=== PATIENT | female | born 1955 | race Caucasian/White ===

== ENCOUNTER 2021-07-19 08:43 | Inpatient (IN) | payer MEDICARE, MEDICAID, SELFPAY ==
[2021-07-19] VITALS (33 sets, daily range): BP systolic 100–157; BP diastolic 57–96; PULSE 62–111; RESP 18–32; TEMP 37.1–38.9; O2SAT 77–93; BMI 38.0
--- NOTE | 2021-07-19 09:09 | XR_ITS ---
WS: [id number] Exam: XR chest 1V portable [id number] Date/Time of Exam: 07/19/2021 9:17 AM Reason For Exam: dyspnea/cough No priors. There are infiltrates in the mid and lower lung zones bilaterally suggesting pneumonia. The lungs are fully inflated. Heart size is within normal limits for technique. No pleural effusions. The mediasti num and osseous thorax are unremarkable. Monitoring leads superimpose the chest. XR/XR chest 1V portable [id number] IMPRESSION: 1. Infiltrates in the mid and lower lung zones bilaterally suggesting pneumonia .
[2021-07-19] MEDS: ondansetron 2 mg/ML SDV 2 mL 4 MG IVP (09:27)
[2021-07-19] MEDS: lactated ringers 1,000 ML 999 ML IV (09:27)
[2021-07-19 09:46] LABS: Basophils % 0.2 %; Hematocrit 45.3 % (37.0-47.0); Hemoglobin 14.6 g/dL (11.5-15.3); Lymphocytes # 0.6 10^3/uL (0.8-4.8); Lymphocytes % 4.9 %; Mean Corpuscular HGB Conc 32.2 g/dL (30.0-36.0); Mean Corpuscular Hemoglobin 34.5 pg (28.0-34.0); Mean Corpuscular Volume 107.1 fl (81-99); Mean Platelet Volume 8.6 fL (7.4-10.4); Monocytes # 0.6 10^3/uL (0.2-0.9); Monocytes % 4.9 %; Neutrophils # 10.76 10^3/uL (1.8-7.7); Neutrophils % 88.6 %; Nucleated Red Blood Cells % 0.2 %; Platelet Count 154 10^3/cmm (130-400); Red Blood Count 4.23 10^6/uL (4.1-5.3); White Blood Count 12.2 10^3/uL (4.0-10.0)
[2021-07-19 09:52] LABS: ABG PCO2 58.6 mmHg (35-45); ABG PH Result 7.34 (7.35-7.45); Arterial Blood Gas Hematocrit 44.8 % (37-47); Base Excess ABG 4.2 mmol/L (-2.0-2.0); Blood Gas Allen Test Pos; Blood Gas Operator Identificat CAK; Blood Gas Sample Site Radial, left; Blood Gas Sample Type Arterial; Carboxyhemoglobin 4.6 %THgb (0.4-20.1); HCO3 ABG 31.7 mmol/L (22-26); HGB O2 Sat 86.8 % (95-100); Ionized Calcium Level - ABG 1.2 mmol/L (1.1-1.4); Oxygen Device NC; PO2 ABG 64.4 mmHg (80.0-100.0); Total Hemoglobin 14.6 g/dL (12-16)
--- NOTE | 2021-07-19 10:03 | ED_ITS ---
HPI - SOB/Dyspnea General: Chief Complaint: Shortness of Breath/Dyspnea Stated Complaint: respiratory distress Time Seen by Provider: 07/19/21 09:08 Source: patient Mode of arrival: wheelchair History of Present Illness: HPI Narrative: 66-year-old female who presents to the emergency room with complaints of shortness of breath. Recently moved here to be with family for [place]. He is supposed to be on oxygen at 3 L/min continuously but evidently when she moved here did not have any oxygen whether she has been using another family members oxygen source with they have it at 4 L/min. Relative at the bedside with there is a distant relative reports that the patient has been confused and disoriented frequently will begin to answer questions and seems to be cognizant and oriented but then tails off which I find to be the case as well at the bedside. Patient denies any chest or abdominal pain is obviously short of breath is coarse breath sounds and significantly congested. She denies dysuria urgency or frequency vomiting or diarrhea there is no report of fever at home however they do not have a thermometer that did not think the patient felt hot while at home here she presents with a temp of 1021. Associated symptoms: Deny abdominal pain, chest pain, fever(s), nausea, orthopnea or vomiting Review of Systems Const: Denies: fever(s), chills, body aches, change in appetite, fatigue or malaise ENMT: Denies: throat pain, ear or mastoid pain, nasal discharge or nasal congestion Card: Denies: chest pain, edema, dyspnea on exertion or orthopnea Resp: Reports: dyspnea and non-productive cough; Denies: productive cough GI: Denies: abdominal pain, nausea, vomiting, hematemesis, coffee ground emesis, diarrhea, constipation, bloating, hematochezia or melena : Denies: flank pain, difficulty voiding, dysuria, urinary frequency or urinary urgency PFSH ED PFSH: Medical History Atrial fibrillation Chronic back pain COPD (chronic obstructive pulmonary disease) Chronically on 3 L of oxygen Coronary artery disease Depression with anxiety GERD (gastroesophageal reflux disease) Hyperlipidemia Hypertension Hypothyroidism Peripheral neuropathy Psychiatric care Type 2 diabetes mellitus Family History Other CAD (coronary artery disease) Diabetes Social History Smoking and tobacco status: current every day smoker Alcohol intake: current Physical Exam Const: COMMON NORMALS: no acute distress GENERAL APPEARANCE: cooperative and comfortable ORIENTATION/CONSCIOUSNESS: Yes awake, Yes oriented to person, Yes oriented to place and Yes oriented to time HENMT: COMMON NORMALS: normocephalic, atraumatic and hearing grossly normal bilaterally HEAD & SCALP: normocephalic and atraumatic Resp: EFFORT & INSPECTION: Yes labored and Yes uses accessory muscles AUSCULTATION: rhonchi Cardio: COMMON NORMALS: regular rhythm and No murmurs present (Cardio) RATE: tachycardic RHYTHM: regular rhythm GI: COMMON NORMALS: Soft to palpation and No hepatosplenomegaly present AUSCULTATION: Yes normoactive bowel sounds PALPATION: Yes Soft to palpation, No Tenderness to palpation present (GI), No Guarding due to palpation present (GI) and Yes No hepatosplenomegaly present Extremity: COMMON NORMALS: normal to inspection, capillary refill normal, no clubbing, cyanosis or edema, no calf tenderness and no pedal edema Neuro: SENSORIUM/ORIENTATION: Yes oriented to person, Yes oriented to place and Yes oriented to time Skin: COMMON NORMALS: no rashes or lesions noted GENERAL SKIN EXAM: no rashes or lesions noted Course Vital Signs: Vital signs: Vital Signs Temperature 102.1 F H 07/19/21 08:50 Pulse Rate 89 07/19/21 14:00 Respiratory Rate 29 H 07/19/21 14:00 Blood Pressure 125/67 07/19/21 14:00 Pulse Oximetry 91 07/19/21 14:00 MDM - SOB/Dyspnea Medical Decision Making Bilateral pneumonia and. Mild heart failure as well.. Secondary incidental finding of UTI. Discussed with hospitalist will admit. Medical Records I reviewed the patient's medical records. Lab Data I reviewed the patient's lab results. : 07/19/21 09:30 07/19/21 09:30 Labs/Radiology: Radiology Impressions Chest X-Ray 07/19/21 09:09 IMPRESSION: 1. Infiltrates in the mid and lower lung zones bilaterally suggesting pneumonia. Ankle X-Ray 07/19/21 11:43 IMPRESSION: Negative right ankle. Foot X-Ray 07/19/21 11:43 IMPRESSION: Negative right foot. Laboratory Results WBC 12.2 10^3/uL (4.0-10.0) H 07/19/21 09:30 RBC 4.23 10^6/uL (4.1-5.3) 07/19/21 09:30 Hgb 14.6 g/dL (11.5-15.3) 07/19/21 09:30 Hct 45.3 % (37.0-47.0) 07/19/21 09:30 MCV 107.1 fl (81-99) H 07/19/21 09:30 MCH 34.5 pg (28.0-34.0) H 07/19/21 09:30 MCHC 32.2 g/dL (30.0-36.0) 07/19/21 09:30 RDW 14.0 % (12.1-15.1) 07/19/21 09:30 Plt Count 154 10^3/cmm (130-400) 07/19/21 09:30 MPV 8.6 fL (7.4-10.4) 07/19/21 09:30 Neut % (Auto) 88.6 % 07/19/21 09:30 Lymph % (Auto) 4.9 % 07/19/21 09:30 [place] % (Auto) 4.9 % 07/19/21 09:30 Eos % (Auto) 0.0 % 07/19/21:30 Baso % (Auto) 0.2 % 07/19/21 09:30 Neut # (Auto) 10.76 10^3/uL (1.8-7.7) H 07/19/21 09:30 Lymph # (Auto) 0.6 10^3/uL (0.8-4.8) L 07/19/21 09:30 [place] # (Auto) 0.6 10^3/uL (0.2-0.9) 07/19/21 09:30 Eos # (Auto) 0.0 10^3/uL (0.0-0.8) 07/19/21 09:30 Baso # (Auto) 0.0 10^3/uL (0.0-0.1) 07/19/21 09:30 Nucleated RBC % (auto) 0.2 % 07/19/21 09:30 Nucleated RBCs # 0.0 /100WBC 07/19/21 09:30 Specimen Type Arterial 07/19/21 09:41 Sample Site Radial, left 07/19/21 09:41 ABG pH 7.34 (7.35-7.45) L 07/19/21 09:41 ABG pCO2 58.6 mmHg (35-45) H 07/19/21 09:41 ABG pO2 64.4 mmHg (80.0-100.0) L 07/19/21 09:41 ABG HCO3 31.7 mmol/L (22-26) H 07/19/21 09:41 ABG O2 Saturation 92.0 07/19/21 09:41 ABG Base Excess 4.2 mmol/L (-2.0-2.0) H 07/19/21 09:41 Noe Test Pos 07/19/21 09:41 A-a O2 Gradient 2.0 mmHg (5-10) L 07/19/21 09:41 Hematocrit 44.8 % (37-47) 07/19/21 09:41 Hgb O2 Saturation 86.8 % (95-100) L 07/19/21 09:41 Carboxyhemoglobin 4.6 %THgb (0.4-20.1) 07/19/21 09:41 Methemoglobin 1.0 % (0.4-1.5) 07/19/21 09:41 Total Hemoglobin 14.6 g/dL (12-16) 07/19/21 09:41 Sodium 140.0 mmol/L (131-143) 07/19/21 09:41 Potassium 4.0 mmol/L (3.5-5.0) 07/19/21 09:41 Glucose 159.0 mg/dL (70-115) H 07/19/21 09:41 Ionized Calcium 1.2 mmol/L (1.1-1.4) 07/19/21 09:41 O2 Delivery Device Nc 07/19/21 09:41 O2 Liters/Min 5.0 % 07/19/21 09:41 Dude [place]rangler ID Cak 07/19/21 09:41 Sodium 140 mmol/L (136-145) 07/19/21 09:30 Potassium 4.0 mmol/L (3.5-5.1) 07/19/21 09:30 Chloride 98 mmol/L (98-107) 07/19/21 09:30 Carbon Dioxide 30 mmol/L (22-29) H 07/19/21 09:30 Anion Gap 16.0 (5-19) 07/19/21 09:30 BUN 14 mg/dL (8-23) 07/19/21 09:30 Creatinine 1.2 mg/dL (0.5-0.9) H 07/19/21:30 GFR Calculation 44.9 mL/min (90-130) L 07/19/21 09:30 Glucose 162 mg/dL (65-115) H 07/19/21 09:30 Calculated Osmolality 294 mOsm/kg (285-295) 07/19/21 09:30 Lactic Acid 2.0 mmol/L (0.5-2.2) 07/19/21 09:30 Calcium 8.7 mg/dL (8.5-10.5) 07/19/21:30 Magnesium 1.7 mg/dL (1.7-2.3) 07/19/21 09:30 Total Bilirubin 0.3 mg/dL (0.15-1.2) 07/19/21 09:30 AST 11 U/L (0-32) 07/19/21 09:30 ALT 11 U/L (0-33) 07/19/21 09:30 Alkaline Phosphatase 138 IU/L (35-105) H 07/19/21 09:30 Creatine Kinase 51 U/L (26-192) 07/19/21 09:30 NT-Pro-B Natriuret Pep 297 pg/mL (0-125) H 07/19/21 09:30 Total Protein 7.0 g/dL (6.6-8.7) 07/19/21 09:30 Albumin 4.1 g/dL (3.5-5.2) 07/19/21 09:30 Globulin 2.9 g/dL (1.3-4.6) 07/19/21 09:30 Lipase 12 U/L (13-60) L 07/19/21 09:30 Urine Color Yellow (Yellow) 07/19/21 10:00 Urine Appearance Cloudy (CLEAR) 07/19/21 10:00 Urine pH 5 (5-7) 07/19/21 10:00 Ur Specific [place] 1.015 (1.005-1.030) 07/19/21 10:00 Urine Protein Neg (Negative) 07/19/21 10:00 Urine Glucose (UA) Norm (Normal) 07/19/21 10:00 Urine Ketones Negative (Negative) 07/19/21 10:00 Urine Blood 2+ (Negative) H 07/19/21 10:00 Urine Nitrate Positive (Negative) H 07/19/21 10:00 Urine Bilirubin Neg (Negative) 07/19/21 10:00 Urine Urobilinogen 1 mg/dL (Negative) H 07/19/21 10:00 Ur Leukocyte Esterase 2+ (Negative) H 07/19/21 10:00 Urine RBC 15-25 /hpf (0-2) H 07/19/21 10:00 Urine WBC >100 /hpf (0-5) H 07/19/21 10:00 Ur Squamous Epith Cells 0-4 /hpf (0-5) H 07/19/21 10:00 Amorphous Sediment Not Reportable 07/19/21 10:00 Urine Bacteria 4+ /hpf (NONE) H 07/19/21 10:00 Serum Ketones Negative (Negative) 07/19/21 09:30 Discharge Plan Discharge Patient Disposition: Admitted As Inpatient Admit Provider: López Montenegro Clinical Impression: Respiratory failure with hypoxia and hypercapnia, Type 2 diabetes mellitus, Pneumonia, UTI (urinary tract infection), COPD exacerbation Condition: Stable Coding Level of Care Code ED Audiology Director for Kris Berry
[2021-07-19 10:08] LABS: Ketone (Acetest) Serum Negative (Negative)
[2021-07-19 10:12] LABS: Alanine Aminotransferase 11 U/L (0-33); Albumin Level 4.1 g/dL (3.5-5.2); Alkaline Phosphatase 138 IU/L (35-105); Aspartate Amino Transferase 11 U/L (0-32); Blood Urea Nitrogen 14 mg/dL (8-23); Calcium 8.7 mg/dL (8.5-10.5); Carbon Dioxide 30 mmol/L (22-29); Chloride 98 mmol/L (98-107); Creatine Phosphokinase 51 U/L (26-192); Globulin 2.9 g/dL (1.3-4.6); Glomerular Filtration Rate 44.9 mL/min (90-130); Glucose 162 mg/dL (65-115); Lipase 12 U/L (13-60); Magnesium 1.7 mg/dL (1.7-2.3); NT Pro B Type Natriuretic Pept 297 pg/mL (0-125); Osmolality Calculated 294 mOsm/kg (285-295); Sodium 140 mmol/L (136-145); Total Bilirubin 0.3 mg/dL (0.15-1.2)
[2021-07-19 10:38] LABS: Add Urine Culture? Yes; Add Urine Microscopic? YES; Bacteria Urine 4+ /hpf; Bilirubin Urine Neg (Negative); Blood Urine 2+ (Negative); Glucose Urine UA Norm (Normal); Ketones Urine Negative (Negative); Leukocyte Esterase Urine 2+ (Negative); Nitrate Urine Positive (Negative); Protein Urine Neg (Negative); RBC Urine 15-25 /hpf (0-2); Specific Gravity, Urine 1.015 (1.005-1.030); Squamous Epithelial Cell Urine 0-4 /hpf (0-5); Urine Appearance Cloudy (CLEAR); Urine Color Yellow (Yellow); Urobilinogen Urine 1 mg/dL (Negative); WBC Urine >100 /hpf (0-5); pH Urine 5 (5-7)
[2021-07-19] MEDS: levofloxacin-dextrose 5 % 750 MG/150 ML PREMIX 100 MG IV (10:58)
--- NOTE | 2021-07-19 11:43 | XR_ITS ---
WS: [id number] Exam: XR ankle RT 2V [id number] Date/Time of Exam: 07/19/2021 11:45 AM Reason For Exam: fall Findings: Multiple views of the ankle reveal no fracture or displacements of bone. No soft tissue swelling is present. There are no periosteal reactions noted. The talus and calcaneus are in adequate position. The joint space is smooth and equidistant. XR/XR ankle RT 2V [id number] IMPRESSION: Negative right ankle.
--- NOTE | 2021-07-19 11:43 | XR_ITS ---
WS: [id number] Exam: XR foot RT 2V [id number] Date/Time of Exam: 07/19/2021 11:45 AM Reason For Exam: fall Findings: The foot was examined in multiple views and reveals no fractures or displacements of bone. No bony a nomalies are noted. The bony elements are in adequate alignment. The joint spaces are smooth and eq uidistant. XR/XR foot RT 2V [id number] IMPRESSION: Negative right foot.
--- NOTE | 2021-07-19 11:54 | P.HP_ITS ---
Providers/Chief Complaint Admitting Physician: López Montenegro MD Chief Complaint: respiratory distress History of Present Illness Huong Hickman is a 66 year old female recently new to the area that presents with 3 days of cough, shortness of breath, and some dysuria. She has not had any vomiting, or diarrhea that I can decipher. She has been somewhat confused, and a little lethargic when not stimulated in the emergency department. She has not fallen at home but did have a fall in the emergency department that was witnessed by family where she injured her right ankle by twisting it. She does report some pain in the ankle currently. She reports she is short of breath, coughing and wheezing. She denies any chest pain. I cannot decipher her responses to some of the questions, and family that is with her does not know al l of her past medical history. I am not sure if she has been vaccinated for COVID or flu. She has not been on antibiotics lately. She states she is supposed to be on oxygen, but using a friend's oxygen about 3 to 4 L at home. She has had a rash in her neck area. Review of Systems General: Reports: 10 or more systems reviewed and unremarkable except in HPI and below Const: Reports: fever(s) and fatigue Eyes: Denies: change in vision ENMT: Denies: throat pain Card: Reports: dyspnea on exertion; Denies: chest pain Resp: Reports: dyspnea and productive cough GI: Denies: abdominal pain, hematemesis, coffee ground emesis, hematochezia or melena : Reports: dysuria Musc: Reports: back pain; Denies: neck pain Skin/Breast: Reports: rash Neuro: Denies: headache(s) Psych: Denies: anxiety or depression Endo: Denies: polyuria Lan/Lymph: Denies: easy bruising All/Imm: Denies: urticaria Medications/Allergies Home Medications Medication Instructions Recorded Confirmed Last Taken Type Fish Oil 1 cap PO DAILY 07/19/21 07/19/21 Unknown History albuterol sulfate 90 mcg/actuation 2 - 4 puff INHALATION Q4H PRN 07/19/21 Unknown History aerosol inhaler apixaban 2.5 mg tablet (Eliquis) 2.5 mg PO BID 07/19/21 07/19/21 07/19/21 History aspirin 81 mg tablet,delayed 81 mg PO QAM 07/19/21 07/19/21 Unknown History release atorvastatin 40 mg tablet (Lipitor) 40 mg PO DAILY 07/19/21 07/19/21 Unknown History buspirone 15 mg tablet 15 mg PO TID 07/19/21 07/19/21 07/19/21 History citalopram 40 mg tablet (Celexa) 40 mg PO DAILY 07/19/21 07/19/21 Unknown History cyclobenzaprine 5 mg tablet 5 mg PO TID 07/19/21 07/19/21 07/19/21 History ferrous sulfate 325 mg (65 mg 325 mg PO BID 07/19/21 07/19/21 Unknown History iron) tablet (iron) fluticasone fur. 100 mcg-umeclid 1 inh INHALATION DAILY 07/19/21 07/19/21 Unknown History 62.5 mcg-vilant 25 mcg inhalat.powder (Trelegy Ellipta) furosemide 20 mg tablet (Lasix) 20 mg PO QAM 07/19/21 07/19/21 Unknown History gabapentin 300 mg capsule 300 mg PO TID 07/19/21 07/19/21 Unknown History ipratropium 0.5 mg-albuterol 3 mg 3 ml INHALATION QID PRN 07/19/21 07/19/21 Unknown History (2.5 mg base)/3 mL nebulization soln levothyroxine 112 mcg tablet 112 mcg PO QAM 07/19/21 07/19/21 07/19/21 History lisinopril 20 mg tablet 20 mg PO DAILY 07/19/21 07/19/21 Unknown History metformin 500 mg tablet 500 mg PO DAILY 07/19/21 07/19/21 Unknown History omeprazole 20 mg capsule,delayed 20 mg PO DAILY 07/19/21 07/19/21 Unknown History release oxybutynin chloride 10 mg 10 mg PO DAILY 07/19/21 07/19/21 Unknown History tablet,extended release 24 hr quetiapine 300 mg tablet (Seroquel) 600 mg PO BEDTIME 07/19/21 07/19/21 Unknown History trazodone 100 mg tablet 100 mg PO BEDTIME 07/19/21 07/19/21 Unknown History Allergies Allergy/AdvReac Type Severity Reaction Status Date / Time No Known Allergies Allergy Verified 07/19/21 09:46 PFSH Acute PFSH: Medical History (Updated 07/19/21 @ 13:00 by López Montenegro MD) Atrial fibrillation Chronic back pain COPD (chronic obstructive pulmonary disease) Chronically on 3 L of oxygen Coronary artery disease Depression with anxiety GERD (gastroesophageal reflux disease) Hyperlipidemia Hypertension Hypothyroidism Peripheral neuropathy Psychiatric care Type 2 diabetes mellitus Family History (Updated 07/19/21 @ 11:58 by López Montenegro MD) Other CAD (coronary artery disease) Diabetes Social History (Updated 07/19/21 @ 11:58 by López Montenegro MD) Smoking and tobacco status: current every day smoker Alcohol intake: current Other PFSH information: Supplemental PFSH Information: Denies any significant surgeries Vitals/I&O/Wt Last Vital Signs Temp 102.1 F H 07/19/21 08:50 Pulse 102 H 07/19/21 10:46 Resp 32 H 07/19/21 10:46 BP 131/73 07/19/21 10:46 Pulse Ox 93 07/19/21 10:46 Weight last 48 hrs Weight 100.698 kg Physical Exam Narrative: General exam is a white female, conversant but somewhat difficult to understand, who can answer Questions. When not stimulated, she quickly goes back to sleep. Mild to moderate respiratory distress noted with elevated respiratory rate, retractions HEENT: Pupils equally round. Oropharynx clear. A dentulous. Neck is supple no lymphadenopathy or thyromegaly Cardiovascular regular rate and rhythm, heart sounds distant Lungs bilateral expiratory wheezes. Rhonchi at the bases Abdomen is soft, obese, positive bowel sounds. No obvious organomegaly. exam demonstrates Klein Extremities no cyanosis clubbing or edema, cap refill brisk Skin some faint erythema in her neckline but no significant papules/macules Neuro no obvious focal deficits. Falls asleep quickly when not stimulated. Data : 07/19/21 09:30 07/19/21 09:30 Other Labs: I have ordered an EKG MCV is elevated at 107 ABG demonstrates a pH of 7.34, PCO2 of 59, PO2 of 64 LFTs are normal with the exception of alk phos of 138. CK 51 BNP 297 Lipase 12 Urinalysis demonstrates 15-25 red blood cells, greater than 100 white blood cells Coronavirus, flu pending Serum ketones negative Chest x-ray bibasilar infiltrate right greater than left. Cannot exclude small left effusion. Calcium noted in the aorta. X-rays of the right foot and ankle are negative. A&P Assessment and plan (1) Respiratory failure with hypoxia and hypercapnia: Acute respiratory failure with hypoxia and hypercapnia demonstrated by ABG. She has accessory muscle use, and evidence this is likely affecting her brain secondary to her acute encephalopathy. I believe the likely etiology of this is pneumonia, acute COPD exacerbation. She may need BiPAP.. Will keep this in mind and transition over the ICU. Status: Acute (2) Pneumonia: Patient presenting with acute pneumonia. She has risk factors for pseudomonal disease secondary to her longstanding COPD, oxygen requirement, heart disease and other comorbidities. At this point she will be on Zosyn, Levaquin Sputum culture MRSA PCR Oxygen, wean as tolerated Pulmonary toilet Status: Acute (3) UTI (urinary tract infection): Urine culture Zosyn IV Status: Acute (4) Acute metabolic encephalopathy: Secondary to COPD exacerbation, pneumonia, elevated CO2. Monitor carefully for improvement, and if this is not seen considering imaging. Status: Acute (5) COPD exacerbation: Acute COPD exacerbation Duoneb every 4 hours, Budesonide BID Wean oxygen as tolerated May require BIPAP secondary to CO2 retention. IV steroids Status: Acute (6) Elevated MCV: Check TSH, B12, Folate Status: Acute (7) Type 2 diabetes mellitus: Sliding scale insulin Status: Acute (8) Hypothyroidism: Check TSH Status: Acute (9) Coronary artery disease: Continue ASA, Statin. Check baseline EKG Status: Acute Plan Right ankle pain post fall. Xray negative. Continue to monitor. Multiple other medical problems as outlined by past medical history Full code [place] will suffice for DVT prophylaxis Attestations Medical Necessity Statement*: Will need greater than 2 midnight stay secondary to acute pneumonia, UTI, respiratory failure, and acute encephalopathy requiring treatment with IV antibiotics and close monitoring Critical Care Time: The high probability of a clinically significant, sudden or life threatening deterioration of the patient's [pulmonary, MARKETING PRODUCTION SPECIALIST, infectious system(s) required my full and direct attention, intervention and personal management. The critical care time is as shown. This time is in addition to time spent performing any reported procedures but includes the following: [x] Data and vital sign review and interpretation [x] Patient assessment, examination and intervention [x] Documentation [x] Medication orders and management Critical Care Time (min): 65 Coding Level of Care Code Acute Laboratory Equipment Cleaner for Chg Fwd Diagnoses Respiratory failure with hypoxia and hypercapnia J96.91; J96.92 Pneumonia J18.9 UTI (urinary tract infection) N39.0 Acute metabolic encephalopathy G93.41 Elevated MCV R71.8 Type 2 diabetes mellitus E11.9 Hypothyroidism E03.9 Coronary artery disease I25.10 COPD exacerbation J44.1
--- NOTE | 2021-07-19 11:59 | ECG_ITS ---
[facility] Test Date: 2021-07-19 Pat Name: Huong Hickman Department: Room: Gender: Female Insurance Broker: : 1955 Requested By: López Leblanc Order Number: [id number] Julia MD: Saira Jimenez M.D. Measurements Intervals [place] Rate: 99 P: 80 MI: 145 QRS: 67 QRSD: 88 T: 61 QT: 351 QTc: 451 Interpretive Statements SINUS RHYTHM LOW QRS VOLTAGE IN PRECORDIAL LEADS [QRS DEFLECTION < 1.0 mV IN CHEST LEADS] No previous ECG available for comparison Electronically Signed On 07-20-2021 7:34:27 CDT by Saira Jimenez M.D. [email or web address]
--- NOTE | 2021-07-19 12:22 | PC.NURSE ---
REPORT GIVEN TO MYLES GREGORY IN ICU.
[2021-07-19 13:32] LABS: Vitamin B12 382 pg/mL (232-1245)
[2021-07-19 13:37] LABS: Thyroid Stimulating Hormone 2.16 uIU/mL (0.27-4.20)
[2021-07-19 13:45] LABS: Folate Level 11.2 ng/mL (4.8-37.3)
[2021-07-19] MEDS: BuSPIRONE 10 mg Tablet 15 MG PO ×2 (14:30→20:30)
[2021-07-19] MEDS: ipratropium-albuterol 3 mL Neb INHALATION ×3 (15:00→23:40)
[2021-07-19 15:31] LABS: Adenovirus Not Detected (NOT DETECT); Chlamydia Pneumoniae Not Detected (NOT DETECT); Coronavirus 229E,HKU1,NL63,OC4 Detected (NOT DETECT); Human Metapneumovirus Not Detected (NOT DETECT); Human Rhinovirus/Enterovirus Not Detected (NOT DETECT); Influenza A Not Detected (NOT DETECT); Influenza A H1 Not Detected (NOT DETECT); Influenza A H1-2009 Not Detected (NOT DETECT); Influenza A H3 Not Detected (NOT DETECT); Influenza B Not Detected (NOT DETECT); Mycoplasma Pneumoniae Not Detected (NOT DETECT); Parainfluenza Virus Type 1 Not Detected (NOT DETECT); Parainfluenza Virus Type 2 Not Detected (NOT DETECT); Parainfluenza Virus Type 3 Not Detected (NOT DETECT); Parainfluenza Virus Type 4 Not Detected (NOT DETECT); Respiratory Syncytial Virus A Not Detected (NOT DETECT); Respiratory Syncytial Virus B Not Detected (NOT DETECT); SARS-COV-2 Not Detected (NOT DETECT)
[2021-07-19] MEDS: piperacillin-tazobactam 3.375 GM in dextrose 5% (plus) 50 ML IV ×2 (15:31→23:33)
[2021-07-19 17:16] LABS: Glucose Point of Care 209 mg/dL (70-110)
[2021-07-19] MEDS: apixaban 5 mg Tablet 2.5 MG PO (17:18)
[2021-07-19] MEDS: insulin lispro 100 unit/1 mL SUBCUT ×2 (17:18→20:38)
[2021-07-19] MEDS: budesonide 0.5 mg/2 mL Neb INHALATION (20:03)
[2021-07-19 20:35] LABS: Glucose Point of Care 199 mg/dL (70-110)
[2021-07-20] VITALS (60 sets, daily range): BP systolic 83–139; BP diastolic 52–81; PULSE 64–91; RESP 13–32; TEMP 36.8–37; O2SAT 83–95; BMI 37.8
[2021-07-20] MEDS: ipratropium-albuterol 3 mL Neb INHALATION ×5 (03:26→20:08)
[2021-07-20 03:29] LABS: Basophils % 0.3 %; Hematocrit 42.8 % (37.0-47.0); Hemoglobin 13.8 g/dL (11.5-15.3); Lymphocytes # 1.2 10^3/uL (0.8-4.8); Lymphocytes % 7.2 %; Mean Corpuscular HGB Conc 32.2 g/dL (30.0-36.0); Mean Corpuscular Hemoglobin 33.9 pg (28.0-34.0); Mean Corpuscular Volume 105.2 fl (81-99); Monocytes # 0.3 10^3/uL (0.2-0.9); Monocytes % 1.8 %; Neutrophils # 14.26 10^3/uL (1.8-7.7); Neutrophils % 89.8 %; Nucleated Red Blood Cells % 0 %; Platelet Count 174 10^3/cmm (130-400); Red Blood Count 4.07 10^6/uL (4.1-5.3); Red Cell Distribution Width 13.7 % (12.1-15.1); White Blood Count 15.9 10^3/uL (4.0-10.0)
[2021-07-20 03:44] LABS: Alanine Aminotransferase 11 U/L (0-33); Albumin Level 3.5 g/dL (3.5-5.2); Alkaline Phosphatase 119 IU/L (35-105); Anion Gap 12.9 (5-19); Aspartate Amino Transferase 11 U/L (0-32); Blood Urea Nitrogen 18 mg/dL (8-23); Calcium 9.5 mg/dL (8.5-10.5); Carbon Dioxide 30 mmol/L (22-29); Chloride 100 mmol/L (98-107); Globulin 3.3 g/dL (1.3-4.6); Glomerular Filtration Rate 49.7 mL/min (90-130); Glucose 212 mg/dL (65-115); Osmolality Calculated 296 mOsm/kg (285-295); Potassium 3.9 mmol/L (3.5-5.1); Sodium 139 mmol/L (136-145); Total Bilirubin 0.3 mg/dL (0.15-1.2); Total Protein 6.8 g/dL (6.6-8.7)
[2021-07-20] MEDS: aspirin 81 mg EC Tablet PO (05:26)
[2021-07-20] MEDS: acetaminophen 325 mg Tablet 650 MG PO (05:26)
[2021-07-20] MEDS: levothyroxine 112 mcg Tablet PO (05:26)
[2021-07-20] MEDS: insulin lispro 100 unit/1 mL SUBCUT ×4 (07:14→21:53)
[2021-07-20 07:25] LABS: Glucose Point of Care 182 mg/dL (70-110)
--- NOTE | 2021-07-20 07:46 | USCV_ITS ---
Huong Hickman Age: 66 Gender: F : 1955 Exam Date: 07/20/2021 08:11 Ordering Phys: López Montenegro MD Technologist: TAMMIE Exam Location: [facility] [place] Indication: H/O HF BP: / HR: 69 Rhythm: Sinus Technical Quality: Adequate MEASUREMENTS (Male / Female) Normal Values 2D ECHO LV Diastolic Diameter PLAX 5.0 cm 4.2 - 5.9 / 3.9 - 5.3 cm LV Systolic Diameter PLAX 2.9 cm IVS Diastolic Thickness 1.4 cm 0.6 - 1.0 / 0.6 - 0.9 cm IVS Systolic Thickness 1.7 cm LVPW Diastolic Thickness 1.0 cm 0.6 - 1.0 / 0.6 - 0.9 cm LVPW Systolic Thickness 1.6 cm LVOT Diameter 2.0 cm LV Ejection Fraction 2D Teich 72.3 % LV Ejection Fraction MOD 2C 37.1 % LV Ejection Fraction 2C AL 37.2 % LA Diameter 3.7 cm LA Width 3.5 cm LA Height 4.3 cm RA Width 4.2 cm RA Height 4.9 cm Aorta at Sinotubular Diameter 2.4 cm M-MODE Aortic Annulus Diameter 2.6 cm LA Ao Ratio MM 1.2 MV E Point Septal Separation 0.5 cm DOPPLER AV Peak Velocity 172.8 cm/s LVOT Peak Velocity 75.0 cm/s AV Area Cont Eq vti 1.5 cm squared AV Area Cont Eq pk 1.4 cm squared MV Peak Velocity 113.0 cm/s MV Area PHT 2.7 cm squared Mitral E to A Ratio 0.9 MV E' Velocity 50.0 cm/s Mitral E to MV E' Ratio 13.5 Mitral E to LV E' Lateral Ratio 11.8 Mitral E to LV E' Septal Ratio 16.2 TV Peak E Velocity 68.0 cm/s Right Atrial Pressure 3.0 mmHg PV Peak Velocity 94.0 cm/s RV Acceleration Time 0.1 s RV Ejection Time 0.3 s RV AcT/ET 0.4 FINDINGS Left Ventricle Normal left ventricular size. LV systolic function is normal with EF of 50-55%. No regional wall motion abnormalities. Grade 1 diastolic dysfunction Right Ventricle The right ventricle is normal in size and function. Right Atrium The right atrium is normal in size. Left Atrium The left atrium is normal in size. Mitral Valve Mild mitral annular calcification without significant stenosis or prolapse. There is mild mitral regurgitation. Aortic Valve Structurally normal aortic valve without significant sclerosis or stenosis. There is mild to moderate aortic regurgitation. Tricuspid Valve Structurally normal tricuspid valve without significant stenosis or regurgitation. Insufficient TR jet to calculate RVSP Pulmonic Valve Not well visualized Pericardium Normal pericardium without effusion. Aorta Normal ascending aorta dimension. CONCLUSIONS Technically limited quality echocardiogram because of poor ultrasonic windows LV systolic function is normal with EF of 50-55% Grade 1 diastolic dysfunction Mild mitral regurgitation Mild to moderate aortic regurgitation No comparison studies are available Patric Vidales MD (Electronically Signed) Final Date: 20 July 2021 10:27 S
--- NOTE | 2021-07-20 07:49 | P.PN_ITS ---
Subjective Subjective: Huong reports she feels much better. She believes she is in the hospital after a fall. I explained that she has pneumonia. She denies any pain. She admits she was short of breath. Nursing relates that she no longer appears to have any significant confusion, but often tries to get up on her own. Patient wants to leave today, and I explained this is not a good idea currently considering she is under treatment for pneumonia, and her oxygen requirements have not yet gone down. She reports she has been hospitalized for heart failure in the past. Medications: Reviewed: Yes Vitals/I&O/Wt Last Vital Signs Temp 98.2 F 07/20/21 02:50 Pulse 79 07/20/21 06:30 Resp 23 H 07/20/21 06:30 BP 139/70 07/20/21 06:30 Pulse Ox 95 07/20/21 06:30 07/19/21 07/20/21 07/20/21 22:59 06:59 14:59 Intake Total 270 / 270 290 / 560 Output Total 350 / 350 100 / 450 Balance -80 / -80 190 / 110 Weight last 48 hrs Weight 100.108 kg Weight 100.698 kg Physical Exam Narrative: General exam is a white female, conversant, alert and oriented x3 HEENT: Pupils equally round. Oropharynx clear. Neck is supple Cardiovascular regular rate and rhythm, heart sounds distant Lungs faint expiratory wheeze. Improved aeration from yesterday. Abdomen is soft nontender with positive bowel sounds Extremities no cyanosis clubbing. Slight edema right ankle, lateral side. No contusion noted. Otherwise without edema Neuro no obvious focal deficits Skin no rash currently Data : 07/20/21 02:54 07/20/21 02:54 Micro: Microbiology 07/19/21 12:18 Blood Culture - Preliminary Blood SPECIMEN COLLECTED 07/19/21 12:16 Blood Culture - Preliminary Blood SPECIMEN COLLECTED A&P Assessment and plan (1) Respiratory failure with hypoxia and hypercapnia: Acute respiratory failure with hypoxia and hypercapnia demonstrated by ABG. She has accessory muscle use, and evidence this is likely affecting her brain se condary to her acute encephalopathy. I believe the likely etiology of this is pneumonia, acute COPD exacerbation. She required some BiPAP yesterday Overall she seems improved today. She is currently on 6 L of oxygen. She has no significant accessory muscle use currently. Status: Acute (2) Pneumonia: Patient presenting with acute pneumonia. She has risk factors for pseudomonal disease secondary to her longstanding COPD, oxygen requirement, heart disease and other comorbidities. Continue Zosyn and Levaquin Await sputum culture, MRSA PCR Oxygen, wean as tolerated Pulmonary toilet Status: Acute (3) UTI (urinary tract infection): Await urine culture Continue Zosyn IV Status: Acute (4) Acute metabolic encephalopathy: Secondary to COPD exacerbation, pneumonia, elevated CO2. This appears to be significantly improved, resolved. I believe the patient is at baseline. I have attempted to call her family to have them evaluate the patient as well but there is a constant busy signal.. Status: Acute (5) COPD exacerbation: Acute COPD exacerbation Duoneb every 4 hours, Budesonide BID Wean oxygen as tolerated May require BIPAP secondary to CO2 retention. Significant improvement has occurred. Discontinue IV steroids. Changed to prednisone Status: Acute (6) Elevated MCV: TSH B12 and folate were checked and normal. Status: Acute (7) Type 2 diabetes mellitus: Continue sliding scale insulin Status: Acute (8) Hypothyroidism: TSH is normal Status: Acute (9) Coronary artery disease: Continue ASA, Statin. She indicates a significant history of heart failure in the past. Check echocardiogram Status: Acute Plan Right ankle pain post fall. Xray negative. Continue to monitor. Up with physical therapy today secondary to fall risk Multiple other medical problems as outlined by past medical history Full code Amie will suffice for DVT prophylaxis May transfer out of the ICU with sitter initially. I am concerned about her decisions to get up quickly, and ambulate without assistance. Attestations Medical Necessity Statement*: Needs continued hospitalization for IV antibiotics secondary to pneumonia. Coding Level of Care Code Acute Coil Machine Operator for Chg Fwd Diagnoses Respiratory failure with hypoxia and hypercapnia J96.91; J96.92 Pneumonia J18.9 UTI (urinary tract infection) N39.0 Acute metabolic encephalopathy G93.41 COPD exacerbation J44.1 Elevated MCV R71.8 Type 2 diabetes mellitus E11.9 Hypothyroidism E03.9 Coronary artery disease I25.10
[2021-07-20] MEDS: piperacillin-tazobactam 3.375 GM in dextrose 5% (plus) 50 ML IV ×3 (07:56→23:19)
[2021-07-20] MEDS: FUROsemide 10 mg/mL SDV 4mL 40 MG IVP (07:57)
[2021-07-20] MEDS: pantoprazole DR 40 mg Tablet PO (08:02)
[2021-07-20] MEDS: atorvastatin 40 mg Tablet PO (08:02)
[2021-07-20] MEDS: lisinopril 20 mg Tablet PO (08:02)
[2021-07-20] MEDS: apixaban 5 mg Tablet 2.5 MG PO ×2 (08:02→17:26)
[2021-07-20] MEDS: citalopram 20 mg Tablet 40 MG PO (08:02)
[2021-07-20] MEDS: BuSPIRONE 10 mg Tablet 15 MG PO ×3 (08:02→21:46)
[2021-07-20] MEDS: gabapentin 100 mg Capsule PO ×3 (08:05→21:47)
[2021-07-20] MEDS: predniSONE 20 mg Tablet 40 MG PO (08:05)
[2021-07-20] MEDS: nicotine 21 mg Patch 1 PATCH TRANSDERMA (08:06)
[2021-07-20] MEDS: budesonide 0.5 mg/2 mL Neb INHALATION ×2 (08:18→20:07)
[2021-07-20] MEDS: perflutren protein-a microsphr 0.22 mg/mL SDV 3 mL IV (08:56)
[2021-07-20] MEDS: levofloxacin-dextrose 5 % 750 MG/150 ML PREMIX 100 MG IV (09:16)
[2021-07-20 12:30] LABS: Glucose Point of Care 185 mg/dL (70-110)
--- NOTE | 2021-07-20 15:11 | PC.NURSE ---
Patient very argumentative with all staff including doctors. Insists she is strong enough to go home and wont get any better being in the hospital. Patient educated multiple times by several different staff members about the importance of continuing antibiotic treatment and being complaint with cares.
[2021-07-20 17:27] LABS: Glucose Point of Care 219 mg/dL (70-110)
--- NOTE | 2021-07-20 18:07 | PC.NURSE ---
Family visited this evening, patient more complaint and pleasant with staff after visit. Up in chair watching TV.
[2021-07-20] MEDS: quetiapine 300 mg Tablet PO (21:47)
[2021-07-20 21:54] LABS: Glucose Point of Care 276 mg/dL (70-110)
[2021-07-20] MEDS: guaiFENesin-dextromethorphan UDC 10 mL 5 ML PO (23:19)
[2021-07-20] MEDS: benzonatate 100 mg Capsule 200 MG PO (23:20)
[2021-07-21] VITALS (36 sets, daily range): BP systolic 74–116; BP diastolic 42–68; PULSE 60–90; RESP 12–30; TEMP 37; O2SAT 86–98
[2021-07-21] MEDS: ipratropium-albuterol 3 mL Neb INHALATION ×3 (02:59→11:48)
[2021-07-21 03:17] LABS: Basophils % 0.2 %; Hematocrit 43.2 % (37.0-47.0); Hemoglobin 13.6 g/dL (11.5-15.3); Lymphocytes # 1.7 10^3/uL (0.8-4.8); Lymphocytes % 10.7 %; Mean Corpuscular HGB Conc 31.5 g/dL (30.0-36.0); Mean Corpuscular Hemoglobin 33.8 pg (28.0-34.0); Mean Corpuscular Volume 107.5 fl (81-99); Mean Platelet Volume 8.8 fL (7.4-10.4); Monocytes # 0.6 10^3/uL (0.2-0.9); Monocytes % 3.7 %; Neutrophils # 13.74 10^3/uL (1.8-7.7); Neutrophils % 84.4 %; Nucleated Red Blood Cells % 0 %; Platelet Count 189 10^3/cmm (130-400); Red Blood Count 4.02 10^6/uL (4.1-5.3); Red Cell Distribution Width 13.4 % (12.1-15.1); White Blood Count 16.3 10^3/uL (4.0-10.0)
[2021-07-21 03:34] LABS: Alanine Aminotransferase 10 U/L (0-33); Albumin Level 3.3 g/dL (3.5-5.2); Alkaline Phosphatase 120 IU/L (35-105); Anion Gap 12.6 (5-19); Aspartate Amino Transferase 13 U/L (0-32); Blood Urea Nitrogen 27 mg/dL (8-23); Calcium 9.2 mg/dL (8.5-10.5); Carbon Dioxide 31 mmol/L (22-29); Chloride 98 mmol/L (98-107); Globulin 2.7 g/dL (1.3-4.6); Glomerular Filtration Rate 37.6 mL/min (90-130); Glucose 192 mg/dL (65-115); Osmolality Calculated 296 mOsm/kg (285-295); Potassium 3.6 mmol/L (3.5-5.1); Sodium 138 mmol/L (136-145); Total Bilirubin 0.3 mg/dL (0.15-1.2)
[2021-07-21] MEDS: benzonatate 100 mg Capsule 200 MG PO (05:23)
[2021-07-21] MEDS: levothyroxine 112 mcg Tablet PO (06:17)
[2021-07-21] MEDS: aspirin 81 mg EC Tablet PO (06:17)
[2021-07-21] MEDS: piperacillin-tazobactam 3.375 GM in dextrose 5% (plus) 50 ML IV (07:23)
[2021-07-21 07:48] LABS: Glucose Point of Care 155 mg/dL (70-110)
--- NOTE | 2021-07-21 08:05 | XR_ITS ---
WS: [id number] Exam: XR chest 1V portable [id number] Date/Time of Exam: 07/21/2021 8:11 AM Reason For Exam: pneumonia Comparison 07/19/2021. Improved bibasal infiltrates are noted. The lungs remain fully inflated. No ple ural effusions. Heart size is top limits normal. The mediastinum is not widened. Regional bony elemen ts are intact. Monitoring leads superimpose the chest. XR/XR chest 1V portable [id number] IMPRESSION: 1. Bibasal infiltrates showing significant improvement since previous study.
--- NOTE | 2021-07-21 08:12 | PC.NURSE ---
Dr. Montenegro rounding and discussing POC with patient. Possible discharge this afternoon if all safety measures are met.
[2021-07-21] MEDS: insulin lispro 100 unit/1 mL SUBCUT ×2 (08:19→12:55)
[2021-07-21] MEDS: apixaban 5 mg Tablet 2.5 MG PO (08:19)
[2021-07-21] MEDS: BuSPIRONE 10 mg Tablet 15 MG PO ×2 (08:20→15:10)
[2021-07-21] MEDS: pantoprazole DR 40 mg Tablet PO (08:21)
[2021-07-21] MEDS: nicotine 21 mg Patch 1 PATCH TRANSDERMA (08:21)
[2021-07-21] MEDS: atorvastatin 40 mg Tablet PO (08:21)
[2021-07-21] MEDS: citalopram 20 mg Tablet 40 MG PO (08:21)
[2021-07-21] MEDS: gabapentin 100 mg Capsule PO ×2 (08:21→15:10)
[2021-07-21] MEDS: predniSONE 20 mg Tablet 40 MG PO (08:21)
[2021-07-21] MEDS: budesonide 0.5 mg/2 mL Neb INHALATION (08:27)
[2021-07-21] MEDS: levofloxacin-dextrose 5 % 750 MG/150 ML PREMIX 100 MG IV (09:01)
--- NOTE | 2021-07-21 09:26 | PC.CHAP ---
Pastoral Care Encounter/Spiritual Assessment Type of Contact [] Declined catering coordinator visit [] Patient/Family/Request visit [] Outpatient visit [] Follow-up visit [] Physician referral [] Code/Alert x] Routine visit [] Staff referral [] Actively dying [] Patient sleeping [] Family support [] [] Out of room [] Palliative care [] [] Receiving care in room [] Pre-surgical visit [] Trauma [] Long length of stay [x] ICU visit [] Other: Relational/Emotional Strength [] Patient feels connected with others/family/visitors/staff [] Distress [] Loneliness/isolation [] Abandonment Spirituality of Patient [] Person of Meenakshi [] Attends Pentecostal of their Meenakshi [] Believes in Prayer [] Reads Bible or Caodaism materials [] There are Spiritual issues to be addressed Diesel Engine Mechanic Apprentice Interventions [x] Prayer [x] Active listening [x] Non-anxious presence [x] Spiritual/emotional support [] Crisis/trauma care [] Spiritual counseling [] Bereavement support [] Provided bereavement packet [] Provided Bible/devotional materials [] Provided toy/stuffed animal, coloring book to patient or family member [] Provided Communion [] Anointing/[place] [] Salvation [x] Completed spiritual assessment [] Other: Impact on Illness or Injury [] Angry [] Fearful [] Anxious [] Often cries [] Exhaustion [] Unable to work [] Unable to attend quaker [] Unable to walk/stand [] Unable to read [] Unable to drive [] Unable to eat/drink [] Unable to sleep [] Unable to be with family [] Patient intubated [] Other: Summary patient setting up in chair... breakfast.. requested prayer for health and healing Time spent with patient 10 min
--- NOTE | 2021-07-21 11:08 | PM.DCS ---
Discharge Providers Date of Admission: 07/19/21 12:25 Date of Discharge: July 21, 2021 Attending Provider at Admission: López Montenegro MD Attending Provider at Discharge: López Montenegro MD Diagnoses at Discharge Discharge Diagnosis (1) Respiratory failure with hypoxia and hypercapnia: Status: Acute (2) Pneumonia: Status: Acute (3) UTI (urinary tract infection): Status: Acute (4) Acute metabolic encephalopathy: Status: Acute (5) COPD exacerbation: Status: Acute (6) Elevated MCV: Status: Acute (7) Type 2 diabetes mellitus: Status: Acute (8) Hypothyroidism: Status: Acute (9) Coronary artery disease: Status: Acute Reason for Visit Reason for Visit: respiratory distress Hospital Course Hospital Course Huong is a 66-year-old female with COPD normally on 3 L of oxygen but recently using 4 who presented to the hospital with shortness of breath, lethargy. She had also fallen in the emergency department when she tried to get up. Fever was noted in the emergency department. She was diagnosed with bibasilar pneumonia by x-ray. Urinary tract infection was present. Acute metabolic encephalopathy was likely, secondary to infection as well as some hypercarbia noted on blood gas. She was placed in the ICU initially on BiPAP. She was given IV steroids, IV antibiotics. With this treatment she was markedly better the next day with no evidence of encephalopathy. Oxygen had weaned down to 6 L. She was less short of breath. Fever had gone away. MRSA PCR was negative. Continue treatment with pulmonary toilet, IV antibiotics ensued. She was very eager to go home, asking to be discharged every day of hospital stay. By July 21 she was down to 4 L of oxygen by nasal cannula. She had been afebrile since that elevation in temperature in the emergency department. X-ray showed improved aeration and clearing. It was thought she could be discharged home, with close follow-up. I counseled her to not smoke and that she would likely be readmitted should she smoke. Arrangements were made to qualify her for a BiPAP at home as she reported sleep apnea and a BiPAP was being arranged in [place]. This will also help any hypercarbia that occurs while sleeping. She will finish up 7 more days of oral levofloxacin. She will finish 4 more days of prednisone. She will use DuoNeb 4 times daily, and continue her Trelegy Ellipta. An echocardiogram was also performed in the hospital demonstrating preserved EF, grade 1 diastolic dysfunction, mild to moderate aortic regurgitation and mild mitral regurgitation. Other minor medicine changes occurred such as decreasing lisinopril dose for lower blood pressures. No fracture was seen in her right ankle, where she sustained an injury when falling. She was able to ambulate with a walker prior to discharge with good stability. Physical Exam Narrative: General exam no distress Neck is supple no lymphadenopathy or thyromegaly Cardiovascular regular rate and rhythm without murmur Lungs diminished breath sounds bilaterally but improved aeration from admission. Occasional faint expiratory wheeze Abdomen is soft nontender with positive bowel sounds Extremities no cyanosis clubbing or edema. Discharge Data Studies Completed and Pending Completed Studies During Hospitalization Category Date Time Status XR ankle RT 2V [id number] Routine Exams 07/19/21 11:43 Completed XR chest 1V portable [id number] Routine Exams 07/21/21 08:05 Completed XR chest 1V portable [id number] Stat Exams 07/19/21 09:09 Completed XR foot RT 2V [id number] Routine Exams 07/19/21 11:43 Completed CV. echo wo/w contrast [id number] Routine Ultrasound 07/20/21 07:46 Completed Pending at discharge Category Date Time Status Blood Culture Stat Lab 07/19/21 12:18 Results CBC Auto Diff [Complete Blood Count w/Auto] AM LABS Lab 07/22/21 04:00 Ordered CMP [Comprehensive Metabolic Panel] AM LABS Lab 07/22/21 04:00 Ordered Magnesium AM LABS Lab 07/22/21 04:00 Ordered Sputum Culture Routine Lab 07/19/21 12:24 Uncollected Radiology Impressions Ankle X-Ray 07/19/21 11:43 IMPRESSION: Negative right ankle. Foot X-Ray 07/19/21 11:43 IMPRESSION: Negative right foot. Chest X-Ray 07/21/21 08:05 IMPRESSION: 1. Bibasal infiltrates showing significant improvement since previous study. Laboratory Results WBC 16.3 10^3/uL (4.0-10.0) H 07/21/21 02:46 RBC 4.02 10^6/uL (4.1-5.3) L 07/21/21 02:46 Hgb 13.6 g/dL (11.5-15.3) 07/21/21 02:46 Hct 43.2 % (37.0-47.0) 07/21/21 02:46 MCV 107.5 fl (81-99) H 07/21/21 02:46 MCH 33.8 pg (28.0-34.0) 07/21/21 02:46 MCHC 31.5 g/dL (30.0-36.0) 07/21/21 02:46 RDW 13.4 % (12.1-15.1) 07/21/21 02:46 Plt Count 189 10^3/cmm (130-400) 07/21/21 02:46 MPV 8.8 fL (7.4-10.4) 07/21/21 02:46 Neut % (Auto) 84.4 % 07/21/21 02:46 Lymph % (Auto) 10.7 % 07/21/21 02:46 [place] % (Auto) 3.7 % 07/21/21 02:46 Eos % (Auto) 0.0 % 07/21/21 02:46 Baso % (Auto) 0.2 % 07/21/21 02:46 Neut # (Auto) 13.74 10^3/uL (1.8-7.7) H 07/21/21 02:46 Lymph # (Auto) 1.7 10^3/uL (0.8-4.8) 07/21/21 02:46 [place] # (Auto) 0.6 10^3/uL (0.2-0.9) 07/21/21 02:46 Eos # (Auto) 0.0 10^3/uL (0.0-0.8) 07/21/21 02:46 Baso # (Auto) 0.0 10^3/uL (0.0-0.1) 07/21/21 02:46 Nucleated RBC % (auto) 0 % 07/21/21 02:46 Nucleated RBCs # 0.0 /100WBC 07/21/21 02:46 Specimen Type Arterial 07/19/21 09:41 Sample Site Radial, left 07/19/21 09:41 ABG pH 7.34 (7.35-7.45) L 07/19/21 09:41 ABG pCO2 58.6 mmHg (35-45) H 07/19/21 09:41 ABG pO2 64.4 mmHg (80.0-100.0) L 07/19/21 09:41 ABG HCO3 31.7 mmol/L (22-26) H 07/19/21 09:41 ABG O2 Saturation 92.0 07/19/21 09:41 ABG Base Excess 4.2 mmol/L (-2.0-2.0) H 07/19/21 09:41 Noe Test Pos 07/19/21 09:41 A-a O2 Gradient 2.0 mmHg (5-10) L 07/19/21 09:41 Hematocrit 44.8 % (37-47) 07/19/21 09:41 Hgb O2 Saturation 86.8 % (95-100) L 07/19/21 09:41 Carboxyhemoglobin 4.6 %THgb (0.4-20.1) 07/19/21 09:41 Methemoglobin 1.0 % (0.4-1.5) 07/19/21 09:41 Total Hemoglobin 14.6 g/dL (12-16) 07/19/21 09:41 Sodium 140.0 mmol/L (131-143) 07/19/21 09:41 Potassium 4.0 mmol/L (3.5-5.0) 07/19/21 09:41 Glucose 159.0 mg/dL (70-115) H 07/19/21 09:41 Ionized Calcium 1.2 mmol/L (1.1-1.4) 07/19/21 09:41 O2 Delivery Device Nc 07/19/21 09:41 O2 Liters/Min 5.0 % 07/19/21 09:41 Inside Sales Associate ID Cak 07/19/21 09:41 Sodium 138 mmol/L (136-145) 07/21/21 02:46 Potassium 3.6 mmol/L (3.5-5.1) 07/21/21 02:46 Chloride 98 mmol/L (98-107) 07/21/21 02:46 Carbon Dioxide 31 mmol/L (22-29) H 07/21/21 02:46 Anion Gap 12.6 (5-19) 07/21/21 02:46 BUN 27 mg/dL (8-23) H 07/21/21 02:46 Creatinine 1.4 mg/dL (0.5-0.9) H 07/21/21 02:46 GFR Calculation 37.6 mL/min (90-130) L 07/21/21 02:46 Glucose 192 mg/dL (65-115) H 07/21/21 02:46 POC Glucose 155 mg/dL (70-110) H 07/21/21 07:44 Calculated Osmolality 296 mOsm/kg (285-295) H 07/21/21 02:46 Lactic Acid 2.0 mmol/L (0.5-2.2) 07/19/21 09:30 Calcium 9.2 mg/dL (8.5-10.5) 07/21/21 02:46 Magnesium 1.7 mg/dL (1.7-2.3) 07/19/21 09:30 Total Bilirubin 0.3 mg/dL (0.15-1.2) 07/21/21 02:46 AST 13 U/L (0-32) 07/21/21 02:46 ALT 10 U/L (0-33) 07/21/21 02:46 Alkaline Phosphatase 120 IU/L (35-105) H 07/21/21 02:46 Creatine Kinase 51 U/L (26-192) 07/19/21 09:30 NT-Pro-B Natriuret Pep 297 pg/mL (0-125) H 07/19/21 09:30 Total Protein 6.0 g/dL (6.6-8.7) L 07/21/21 02:46 Albumin 3.3 g/dL (3.5-5.2) L 07/21/21 02:46 Globulin 2.7 g/dL (1.3-4.6) 07/21/21 02:46 Lipase 12 U/L (13-60) L 07/19/21 09:30 Vitamin B12 382 pg/mL (232-1245) 07/19/21 12:46 Folate 11.2 ng/mL (4.8-37.3) 07/19/21 12:46 TSH 2.16 uIU/mL (0.27-4.20) 07/19/21 12:46 Urine Color Yellow (Yellow) 07/19/21 10:00 Urine Appearance Cloudy (CLEAR) 07/19/21 10:00 Urine pH 5 (5-7) 07/19/21 10:00 Ur Specific [place] 1.015 (1.005-1.030) 07/19/21 10:00 Urine Protein Neg (Negative) 07/19/21 10:00 Urine Glucose (UA) Norm (Normal) 07/19/21 10:00 Urine Ketones Negative (Negative) 07/19/21 10:00 Urine Blood 2+ (Negative) H 07/19/21 10:00 Urine Nitrate Positive (Negative) H 07/19/21 10:00 Urine Bilirubin Neg (Negative) 07/19/21 10:00 Urine Urobilinogen 1 mg/dL (Negative) H 07/19/21 10:00 Ur Leukocyte Esterase 2+ (Negative) H 07/19/21 10:00 Urine RBC 15-25 /hpf (0-2) H 07/19/21 10:00 Urine WBC >100 /hpf (0-5) H 07/19/21 10:00 Ur Squamous Epith Cells 0-4 /hpf (0-5) H 07/19/21 10:00 Amorphous Sediment Not Reportable 07/19/21 10:00 Urine Bacteria 4+ /hpf (NONE) H 07/19/21 10:00 Serum Ketones Negative (Negative) 07/19/21 09:30 Coronavirus 229E (PCR) Detected (NOT DETECT) A 07/19/21 10:45 SARS-CoV-2 (PCR) Not detected (NOT DETECT) 07/19/21 10:45 Vitals Last Vital Signs Temp 98.6 F 07/21/21 05:00 Pulse 83 07/21/21 10:00 Resp 15 07/21/21 10:00 BP 116/61 07/21/21 09:00 Pulse Ox 91 07/21/21 10:00 Discharge Plan Discharge Patient Disposition: Home Condition: Stable Prescriptions: New ipratropium-albuterol 0.5 mg-3 mg(2.5 mg base)/3 mL solution for nebulization 3 ml inhalation QID Qty: 180 0RF lisinopril 10 mg tablet 10 mg PO DAILY Qty: 30 0RF prednisone 20 mg Tablet 40 mg PO DAILY Qty: 8 0RF quetiapine [Seroquel] 300 mg tablet 300 mg PO DAILY Qty: 30 0RF levofloxacin 750 mg tablet 750 mg PO DAILY 7 Days Qty: 7 0RF Continued Lipitor 40 mg Tablet 40 mg PO DAILY 0RF metformin 500 mg Tablet 500 mg PO DAILY 0RF Celexa 40 mg Tablet 40 mg PO DAILY 0RF oxybutynin chloride 10 mg Tablet Extended Release 24hr 10 mg PO DAILY 0RF Aspir-81 81 mg Tablet,Delayed Release (Dr/Ec) 81 mg PO QAM 0RF iron 325 mg (65 mg iron) Tablet 325 mg PO BID 0RF gabapentin 300 mg Capsule 300 mg PO TID 0RF Prilosec 20 mg Capsule,Delayed Release(Dr/Ec) 20 mg PO DAILY 0RF Lasix 20 mg Tablet 20 mg PO QAM 0RF albuterol sulfate 90 mcg/actuation Hfa Aerosol Inhaler 2 - 4 puff INHALATION Q4H PRN (Reason: Shortness Of Breath) 0RF levothyroxine 112 mcg Tablet 112 mcg PO QAM 0RF BuSpar 15 mg Tablet 15 mg PO TID 0RF Eliquis 2.5 mg Tablet 2.5 mg PO BID 0RF Trelegy Ellipta 100-62.5-25 mcg Blister With Device 1 inh INHALATION DAILY 0RF Fish Oil 1 cap PO DAILY 0RF Changed cyclobenzaprine 5 mg Tablet 5 mg PO TID PRN (Reason: Muscle Spasm) Qty: 0 0RF Discontinued ipratropium-albuterol 0.5 mg-3 mg(2.5 mg base)/3 mL Solution For Nebulization 3 ml INHALATION QID PRN (Reason: Shortness Of Breath) 0RF Seroquel 300 mg Tablet 600 mg PO BEDTIME 0RF lisinopril 20 mg Tablet 20 mg PO DAILY 0RF trazodone 100 mg Tablet 100 mg PO BEDTIME 0RF Discharge Orders: Discharge Order (Routine); Ordered 07/21/21 Ordered By: López Montenegro Other Ambulatory Orders: DME: Oxygen (Order) Location: None Selected Ordered By: López Montenegro Referrals: Dr. Courtney Ellis [Other] - 4-7 days (Your follow up appointment with Dr. Ellis is on July 27 at 1:20 p.m. Please call [phone] if you have any questions or concerns. Thank you.) Discharge Diet: Cardiac Discharge Activity: Increase activity as tolerated Patient Instructions: Opioid Safety Activity Restrictions/Additional Instructions: Take all medicine as prescribed Oxygen 4 L at rest, 6 L with exertion Finish all of antibiotic No smoking Keep follow-up with primary care provider in the next 3 to 5 days BiPAP is being arranged upon discharge. Wear BiPAP when sleeping, napping, and is short of breath. Discharge Attestations Time Spent in Discharge Care*: greater than 30 min Quality Metrics Clinical Quality Measures [ No reported AMI, CVA or VTE this stay] Coding Level of Care Code Acute Chg FW DC note Diagnoses Respiratory failure with hypoxia and hypercapnia J96.91; J96.92 Pneumonia J18.9 UTI (urinary tract infection) N39.0 Acute metabolic encephalopathy G93.41 COPD exacerbation J44.1 Elevated MCV R71.8 Type 2 diabetes mellitus E11.9 Hypothyroidism E03.9 Coronary artery disease I25.10
[2021-07-21 12:55] LABS: Glucose Point of Care 265 mg/dL (70-110)
--- NOTE | 2021-07-21 16:05 | PC.NURSE ---
Patient discharged to main entrance via W/C, all discharge instructions and medication information given to patient in discharge package. Patient verbalized understanding.
== END 2021-07-21 16:03 | disposition home health service (06) | DRG 193 ==
LOC: ER 12:31 → ICU 12:42
PROVIDERS: Admitting Provider Internal Medicine; Emergency Provider Family Medicine; Visit Provider Internal Medicine
DX: J18.9 Pneumonia, unspecified organism (principal); G93.41 Metabolic encephalopathy; J96.02 Acute respiratory failure with hypercapnia; J96.21 Acute and chronic respiratory failure with hypoxia; J96.22 Acute and chronic respiratory failure with hypercapnia; N39.0 Urinary tract infection, site not specified; J44.1 Chronic obstructive pulmonary disease with (acute) exacerbation; E11.9 Type 2 diabetes mellitus without complications; E03.9 Hypothyroidism, unspecified; I25.10 Atherosclerotic heart disease of native coronary artery without angina pectoris; Z99.81 Dependence on supplemental oxygen; Z79.84 Long term (current) use of oral hypoglycemic drugs; Z79.01 Long term (current) use of anticoagulants; Z79.82 Long term (current) use of aspirin; R71.8 Other abnormality of red blood cells; F17.200 Nicotine dependence, unspecified, uncomplicated; K21.9 Gastro-esophageal reflux disease without esophagitis; I10 Essential (primary) hypertension; M25.571 Pain in right ankle and joints of right foot
CPT/HCPCS: 36415; 36416; 36600; 71045; 73600; 73620; 80051; 80053; 81001; 82009; 82330; 82550; 82607; 82746; 82805; 82962; 83605; 83690; 83735; 83880; 84443; 85025; 87040; 87077; 87086; 87186; 87635; 87641; 93005; 94640; 94660; 96365; 96372; 96375; 97110; 97116; 97161; 99291; C8929; J1815; J1940; J1956; J2405; J2543; J2930; J7512; J7626; Q9956

== ENCOUNTER → 2021-09-29 07:44 | Outpatient (BNVA) | payer MEDICARE, MEDICAID, SELFPAY | PROVIDERS: Visit Provider Psychiatry & Neurology Psychiatry | DX: F79 Unspecified intellectual disabilities (principal); F33.2 Major depressive disorder, recurrent severe without psychotic features; F41.1 Generalized anxiety disorder; F43.12 Post-traumatic stress disorder, chronic | CPT/HCPCS: 90792 ==